=== PATIENT | female | born 1950 | race Caucasian/White ===

== ENCOUNTER 2018-04-18 09:39 | Outpatient (CLI) | payer MEDICARE, OTHER ==
[2018-04-18] MEDS ORDERED: REGADENOSON 0.4 MG/5 ML SYRINGE IVP ONE ×2 (11:05→13:22)
--- NOTE | 2018-04-18 18:10 | CARDIAC PROCEDURE NOTE ---
DATE OF SERVICE: 04/18/2018 Physician: Stephanie Murrieta MD, [facility] INDICATIONS: Chest pain, shortness of breath. CARDIAC RISK FACTORS: Advanced age, family history of heart disease. PROCEDURE: After signing informed consent, the patient underwent a Lexiscan pharmaceutical stress test with nuclear myocardial imaging. Resting heart rate 57, peak heart rate 111. Resting blood pressure 122/80, peak blood pressure 140/68. Lexiscan was infused per protocol. The patient developed 8/10 chest pressure. This decreased to 3/10 chest pressure and resolved in 3 minutes. She had no shortness of breath. RESTING EKG: Normal sinus rhythm, poor R-wave progression. EKG AT [facility]: QT prolongation and new T-wave inversions in leads II, III and aVF and V3 through V6. SUMMARY: 1. Ischemic changes by EKG criteria seen on this pharmaceutical stress test. 2. Nuclear images reported separately. cc: Bogdan Burnett MD TD: 04/18/2018 17:35 [facility]
--- NOTE | 2018-04-19 09:41 | Nuclear Medicine Report ---
Reason: CHEST PAIN, SOF Procedure Date: 04/18/2018 Accession Number: [id number] / [id number] Procedure: NM - Myocardial Perfusion STR/RST CPT Code: FULL RESULT: EXAM: MYOCARDIAL PERFUSION STRESS AND REST EXAM EXAM DATE: 04/18/2018 04:14 PM. CLINICAL HISTORY: Chest pain and shortness of breath. COMPARISON: None. TECHNIQUE: Patient given 9.9 mCi of technetium 99m sestamibi IV for the rest portion of the study. Non-gated cardiac SPECT scintigraphy performed with multiplanar reformats. After an appropriate delay, patient given 0.4 mg Lexiscan IV for pharmacologic stress. Next, patient given 41.7 mCi technetium 99m sestamibi IV. Cardiac gated SPECT scintigraphy performed with multiplanar reformats, wall motion analysis, and left ventricular ejection fraction estimation. FINDINGS: There is uniform activity in the left ventricular myocardium on stress and rest. No fixed or reversible stress-related perfusion defects are seen. Wall motion is uniform. Left ventricular ejection fraction is estimated at greater than 90%, may be overestimated due to relatively small left ventricular chamber size. IMPRESSION: 1. No scintigraphic evidence of inducible ischemia or infarct. 2. Left ventricular ejection fraction estimated at greater than 90%. [facility]
== END 2018-04-18 09:40 | disposition home or self-care (01) ==
LOC: DI 09:39
PROVIDERS: ATTEND Internal Medicine
DX: R07.9 Chest pain, unspecified (principal); R06.02 Shortness of breath; R94.31 Abnormal electrocardiogram [ECG] [EKG]
CPT/HCPCS: 78452; 93017; A9500; J2785